=== PATIENT | male | born 1970 | race Caucasian/White ===

== ENCOUNTER 2017-09-21 17:20 | Emergency (ER) | payer OTHER ==
[2017-09-21 17:29] VITALS: TEMP 98.2
--- NOTE | 2017-09-21 17:40 | ED ---
General Adult HPI - General Chief complaint: Head Injury Stated complaint: Fall Source: patient, family Mode of arrival: wheelchair Limitations: no limitations - History of Present Illness Initial comments: Dictation was produced using [employer] dictation software. please excuse any grammatical, word or spelling errors. Chief Complaint: 47-year-old on the scene. He is presents with headache, nausea and vomiting after head trauma yesterday. History of Present Illness: Is a 47-year-old male presents after head trauma yesterday. He was skateboarding when he fell off the skateboard causing him to fall at [place]. He hit his head on a rock causing dizziness consciousness. He had a brief episode of nasal bleeding however his symptoms resolved. Since incident patient had nausea. He has had poor appetite. Patient denies any neurologic deficit. The ROS documented in this emergency department record has been reviewed and confirmed by me. Those systems with pertinent positive or negative responses have been documented in the HPI. All other systems are other negative and/or noncontributory. - Related Data Home Medications Medication Instructions Recorded Confirmed No Known Home Medications 09/21/17 09/21/17 Allergies Allergy/AdvReac Type Severity Reaction Status Date / Time No Known Allergies Allergy Verified 09/21/17 17:28 Review of Systems ROS Statement: Those systems with pertinent positive or pertinent negative responses have been documented in the HPI. ROS Other: All systems not noted in ROS Statement are negative. Past Medical History Past Medical History: No Reported History History of Any Multi-Drug Resistant Organisms: None Reported Past Surgical History: No Surgical Hx Reported Past Psychological History: No Psychological Hx Reported Smoking Status: Current some day smoker Past Alcohol Use History: Occasional Past Drug Use History: None Reported General Exam - General Exam Comments Initial Comments: PHYSICAL EXAM: General Impression: Alert and oriented x3, not in acute distress HEENT: Normocephalic atraumatic, extra-ocular movements intact, pupils equal and reactive to light bilaterally, mucous membranes moist, left hemotympanum, no raccoon's eyes, no hayes sign Cardiovascular: Heart regular rate and rhythm, S1&S2 audible, no murmurs, rubs or gallops Chest: Lungs clear to auscultation bilaterally, no rhonchi, no wheeze, no rales Abdomen: Bowel sounds present, abdomen soft, non-tender, non-distended, no organomegaly Musculoskeletal: Pulses present and equal in all extremities, no peripheral edema Motor: Power 5/5 bilaterally, no focal deficits noted Neurological: CN II-XII grossly intact, no focal motor or sensory deficits noted Skin: Intact with no visualized rashes Psych: Normal affect and mood Limitations: no limitations Course Vital Signs 09/21/17 09/21/17 17:26 18:48 Temperature 98.2 F Pulse Rate 85 90 Respiratory 18 16 Rate Blood Pressure 130/88 138/88 O2 Sat by Pulse 98 100 Oximetry Medical Decision Making - Medical Decision Making ED course: 47-year-old male with a presentation of significant head trauma and positive loss of consciousness. Physical examination does not show any focal neurologic deficits. He does have hemotympanum to the left ear vital signs upon arrival are within acceptable limits. Laboratory evaluation obtained. CBC is unremarkable coag panel is negative. INR is 1.0. Metabolic panel is unremarkable. Computed tomography scan of the head and neck was obtained showing left-sided value of fracture involving the left mastoid air cells left parietal bone left temporal bone. There is mild pneumocephalus with 2 mm acute left subdural hematoma C-spine is unremarkable. There is degenerative changes on the cervical spine. Discussed with patient that would like to transfer him to [facility] for neurosurgical evaluation and trauma evaluation. Patient and family member state that they do not have insurance and would like to forego ambulance transfer and transfer themselves privately. Discussed with patient that if this is what they choose we are not liable for any occurrences that happened in between discharge from our facility and arrival and [facility]. Patient is to sign out AGAINST MEDICAL ADVICE given that patient is driving privately. As the patient that the risk of him driving privately include morbidity and mortality, worsening brain bleed, seizures and possibly even . Patient understands the risks. Discussed with patient that he should report directly to there. He is told that he may have to wait through the waiting room once again. Arrangements were made for transfer however given that patient wants to drive privately ambulance transfer was canceled. Accepting facility was called and told to expect patient via private vehicle. Patient understands the risks of traveling via private vehicle. - Lab Data Result diagrams: 09/21/17 18:11 09/21/17 18:11 Lab Results 08/12/18 08/12/18 08/12/18 Range/Units 18:11 18:11 18:11 WBC 8.7 (3.8-10.6) k/uL RBC 5.62 (4.30-5.90) m/uL Hgb 17.4 (13.0-17.5) gm/dL Hct 50.4 (39.0-53.0) % MCV 89.7 (80.0-100.0) fL MCH 30.9 (25.0-35.0) pg MCHC 34.5 (31.0-37.0) g/dL RDW 13.5 (11.5-15.5) % Plt Count 201 (150-450) k/uL Neutrophils % 84 % Lymphocytes % 9 % Monocytes % 6 % Eosinophils % 1 % Basophils % 0 % Neutrophils # 7.3 (1.3-7.7) k/uL Lymphocytes # 0.7 L (1.0-4.8) k/uL Monocytes # 0.5 (0-1.0) k/uL Eosinophils # 0.1 (0-0.7) k/uL Basophils # 0.0 (0-0.2) k/uL PT 9.7 (9.0-12.0) sec INR 1.0 (<1.2) Sodium 139 (137-145) mmol/L Potassium 4.2 (3.5-5.1) mmol/L Chloride 106 (98-107) mmol/L Carbon Dioxide 24 (22-30) mmol/L Anion Gap 9 mmol/L BUN 12 (9-20) mg/dL Creatinine 0.73 (0.66-1.25) mg/dL Est GFR (CKD-EPI)AfAm >90 (>60 ml/min/1.73 sqM) Est GFR (CKD-EPI)NonAf >90 (>60 ml/min/1.73 sqM) Glucose 126 H (74-99) mg/dL Calcium 9.2 (8.4-10.2) mg/dL Disposition Clinical Impression: Skull fracture Disposition: Left Against Medical Advice Condition: Critical Instructions: Skull Fracture (ED) Is patient prescribed a controlled substance at d/c from ED?: No Referrals: None,Stated [Primary Care Provider] - 1-2 days Time of Disposition: 18:58
[2017-09-21 18:20] LABS: Basophils % (A) 0 %; Eosinophils # (A) 0.1 k/uL (0-0.7); Eosinophils % (A) 1 %; HCT 50.4 % (39.0-53.0); HGB 17.4 gm/dL (13.0-17.5); Lymphocytes # (A) 0.7 k/uL (1.0-4.8); Lymphocytes % (A) 9 %; MCH 30.9 pg (25.0-35.0); MCHC 34.5 g/dL (31.0-37.0); MCV 89.7 fL (80.0-100.0); Mean Platelet Volume 7.3; Monocytes # (A) 0.5 k/uL (0-1.0); Monocytes % (A) 6 %; Neutrophils # (A) 7.3 k/uL (1.3-7.7); Neutrophils % (A) 84 %; Platelet Count 201 k/uL (150-450); RBC 5.62 m/uL (4.30-5.90); RDW 13.5 % (11.5-15.5); WBC 8.7 k/uL (3.8-10.6)
--- NOTE | 2017-09-21 18:21 | CT ---
EXAMINATION TYPE: CT brain cspine wo con DATE OF EXAM: 09/21/2017 COMPARISON: NONE HISTORY: VIDAL and dizziness after fall injury x [address] DLP: 1338.7 mGycm. Automated Exposure Control for Dose Reduction was Utilized. TECHNIQUE: CT scan of the head and cervical spine are performed without contrast. FINDINGS: There is a left posterior parietal nondisplaced skull fracture extending into the left mas toid air cells. There is subsequent partial opacification of the left mastoid air cells. Additionally there are punctate foci of pneumocephalus in the subdural space and a 2 mm left acute subdural hemat hakan on series 3 image 22. Associated scalp soft tissue swelling without focal hematoma is appreciated . Additionally there is fluid within the middle ear cavity corresponding to the mastoid fracture with presumed extent into the temporal bone. No other compartment of intracranial hemorrhage are seen. There is no significant midline shift. Diez -white matter interface is maintained. The right mastoid air cells and visualized paranasal sinuses a re well aerated. Moderate multilevel degenerative disc disease of the cervical spine is seen. Evaluation of the spinal canal on CT is limited. Lung apices demonstrate minimal paraseptal emphysematous change. There is a very mild anterolisthesis of C2 on C3, likely on a degenerative basis given no prevertebral soft tiss ue swelling in the adjacent degenerative change. There is degenerative narrowing of the atlantodental interval. Cervical spine is visualized in its entirety from C1 through upper thoracic levels. Prevertebral sof t tissue appears within normal limits. The C1-C2 articulation is unremarkable. IMPRESSION: 1. Left-sided calvarial fracture involving the left mastoid air cells, left parietal bone, and presum ably the left temporal bone with opacification of the mastoid air cells and middle ear cavity blood p roducts. Additionally there is pneumocephalus and a small 2 mm acute left subdural hematoma without a ssociated midline shift. Findings were communicated with the ordering ER physician at 1815 on 09/22/[address] Angeles. 2. There is no acute fracture or dislocation evident in the cervical spine. 3. Moderate multilevel degenerative disc disease of the cervical spine with grade 1 anterolisthesis o f C2 on C3, likely on a degenerative basis.
[2017-09-21 18:29] LABS: Anion Gap 9 mmol/L; Blood Urea Nitrogen 12 mg/dL (9-20); Calcium 9.2 mg/dL (8.4-10.2); Carbon Dioxide 24 mmol/L (22-30); Chloride 106 mmol/L (98-107); Glucose 126 mg/dL (74-99); Potassium 4.2 mmol/L (3.5-5.1); Sodium 139 mmol/L (137-145)
--- NOTE | 2017-09-21 18:29 | XR ---
EXAMINATION TYPE: XR chest 1V DATE OF EXAM: 09/21/2017 COMPARISON: NONE HISTORY: Fall with subsequent chest pain. TECHNIQUE: Single frontal view of the chest is obtained. FINDINGS: Linear right basilar subsegmental atelectasis and right hemithorax volume loss with right h emidiaphragm elevation are noted. There is no focal air space opacity, pleural effusion, or pneumotho rax seen. The cardiac silhouette size is within normal limits. The osseous structures are intact. IMPRESSION: Right hemithorax volume loss and right basilar subsegmental atelectasis. Otherwise no ac [place] cardiopulmonary process.
[2017-09-21 18:30] LABS: Prothrombin Time 9.7 sec (9.0-12.0)
[2017-09-21 18:49] VITALS: BP 138/88; PULSE 90; RESP 16
== END 2017-09-21 19:32 | disposition left against medical advice (07) ==
LOC: EC 17:20
DX: S02.0XXA Fracture of vault of skull, initial encounter for closed fracture (principal); S02.82XA Fracture of other specified skull and facial bones, left side, initial encounter for closed fracture; H73.892 Other specified disorders of tympanic membrane, left ear; M47.812 Spondylosis without myelopathy or radiculopathy, cervical region; F17.200 Nicotine dependence, unspecified, uncomplicated; V00.131A Fall from skateboard, initial encounter; Y93.51 Activity, roller skating (inline) and skateboarding; Y92.89 Other specified places as the place of occurrence of the external cause
CPT/HCPCS: 36415; 70450; 71045; 72125; 80048; 85025; 85610; 99284